=== PATIENT | female | born 2000 | race Caucasian/White ===

== ENCOUNTER 2025-02-19 07:06 | Emergency (ER) | payer OTHER, SELFPAY ==
[2025-02-19 07:17] VITALS: BP 136/80; PULSE 67; TEMP 36.8; O2SAT 99; BMI 53.3
[2025-02-19 07:44] LABS: HCG Qualitative Urine* POSITIVE (NEGATIVE)
--- NOTE | 2025-02-19 07:49 | US_ITS ---
[address] [address] Patient Name: MICHELA GONZALEZ MRN: [id number] date: 2000 Sex: F Assigned Patient Location: ER Current Patient Location: ER Accession/Order Number: [id number] Exam Date: 02/19/2025 08:03 Report Date: 02/19/2025 08:46 At the request of: LEONARDA VASQUEZ MD Procedure: US OB transvaginal FIRST TRIMESTER OB ULTRASOUND COMPARISON: None CLINICAL DATA: patient with vaginal bleeding for the past 2 days. Transvaginal imaging of the pelvis was performed. Estimated uterine size is approximately 6.6 x 3.0 x 4.0 cm. No focal myometrial abnormalities are seen. The endometrial lining is estimated at 7-8 mm. No gestational sac is identified. The right ovary was not identified. The left ovary measures 2.3 x 1.8 x 1.7 cm. There are tiny follicles however no adnexal cysts. There is a heterogeneous area with ring of fire vascularity adjacent to the left ovary measuring 1.9 x 1.7 x 1.4 cm. This raises at least some question as to possible ectopic . There is no free pelvic fluid. US/US OB transvaginal IMPRESSION: NO EVIDENCE OF INTRAUTERINE . NONVISUALIZATION OF THE RIGHT OVARY. VASCULAR AREA ADJACENT TO THE LEFT OVARY, DESCRIBED. ECTOPIC CANNOT BE COMPLETELY EXCLUDED. FOLLOW-UP SERIAL BETA-HCG AND REPEAT ULTRASOUND ARE THEREFORE RECOMMENDED. Impression dictated by: Kimber Whalen M.D. 02/19/2025 8:46 AM Dictation Location: [place] [address] Electronically authenticated by: [id number] Y Date: 02/19/2025 08:46
[2025-02-19 07:53] LABS: Glucose Urine UA NEGATIVE (NEGATIVE)
[2025-02-19 08:13] LABS: Cast Seen? NONE SEEN #/LPF (NONE SEEN); Crystals Seen? Seen #/HPF (None Seen); Urine Culture Indicated YES-FRMC
[2025-02-19 08:16] LABS: Hematocrit 35.6 % (36.0-48.0); Hemoglobin 11.7 g/dL (12.0-16.0); Immature Granulocytes Abs Auto 0.00 10^3/uL (0.00-0.03); Immature Granulocytes Pct Auto 0.0 % (0.0-0.5); Lymphocytes Absolute Auto 2.1 10^3/uL (1.2-3.8); Mean Corpuscular HGB Conc 32.9 g/dL (29.9-35.2); Mean Corpuscular Hemoglobin 27.3 pg (26.7-34.0); Mean Corpuscular Volume 83.0 fL (81.0-99.0); Platelet Count 263 10^3/uL (150-450); Red Blood Count 4.29 10^6/uL (4.20-5.40); White Blood Count 7.2 10^3/uL (4.0-11.0)
[2025-02-19 08:45] LABS: Alanine Aminotransferase 34 U/L (14-59); Albumin Globulin Ratio 0.8; Albumin Level 3.4 g/dL (3.4-5.0); Alkaline Phosphatase 71 U/L (46-116); Anion Gap 14.8; Aspartate Amino Transferase 18 U/L (15-37); Blood Urea Nitrogen 10.0 mg/dL (7.0-18.0); Calcium 8.7 mg/dL (8.5-10.1); Carbon Dioxide 26.2 mmol/L (21.0-32.0); Chloride 105 mmol/L (98-107); Estimated GFR (African America >60 (>=60 mL/min/1.73m^2); Estimated GFR (Non-African Ame >60 (>=60 mL/min/1.73m^2); Globulin 4.1 g/dL; Glucose 106 mg/dL (74-106); Potassium 4.0 mmol/L (3.5-5.1); Sodium 142 mmol/L (136-145); Total Protein 7.5 g/dL (6.4-8.2)
--- NOTE | 2025-02-19 08:54 | ED_ITS ---
HPI HPI - General Adult General Chief complaint: OB/Uterine Contractions Stated complaint: VAGINAL DISCHARGE, RECENT POSITIVE Time Seen by Provider: 02/19/25 07:21 Source: patient Mode of arrival: walk-in Limitations: no limitations History of Present Illness HPI narrative: The patient is a 24-year-old female this is her first that she noticed that she is almost a month ago after she did a urine test at home . Patient noted this morning that she had some blood clots vaginal bleeding this morning She denies any abdominal pain no fever no chills no other concerns no significant nausea or vomiting and she was supposed to follow-up with the RELOCATION SERVICES SPECIALIST doctor tomorrow morning Related Data Allergies Allergy/AdvReac Type Severity Reaction Status Date / Time shellfish derived Allergy Severe Nausea Verified 02/19/25 07:15 Review of Systems ROS Status of ROS 10 or more systems reviewed and unremark able except as noted in history and below PFSH PFSH Social History Little interest or pleasure in doing things: not at all Feeling down, depressed, or hopeless: not at all Exam Narrative Exam Narrative: Nurses notes and vital signs reviewed and patient is not hypoxic. General: Well-appearing and in no apparent distress. Skin: Warm, dry, no pallor noted. No rash. Head: Normocephalic, atraumatic. Neck: Supple, non-tender. Cardiovascular: Regular Rate and Rhythm without murmur, gallop or rub. Respiratory: No accessory muscle use or respiratory distress. Lungs are clear to auscultation, no wheezing, rales or rhonchi Chest Wall: no tenderness Back: No midline thoracic or lumbar vertebral tenderness. No CVA tenderness Musculoskeletal: normal ROM, no calf or popliteal tenderness, no lower extremity edema/swelling GI: Abdomen is soft, non-distended. Normal bowel sounds. No masses appreciated. No tenderness to palpation. No rebound, guarding, or rigidity noted. Neurological: A&O x4. No cranial nerve dysfunction observed. No truncal ataxia. Moves all extremities. Sensation intact. Psychiatric: Cooperative and interactive. Normal mood and affect. Constitutional Vital Signs, click to edit/add: Last Vital Signs Temp 98.3 F 02/19/25 07:17 Pulse 67 02/19/25 07:17 Resp 20 02/19/25 07:17 BP 136/80 02/19/25 07:17 Pulse Ox 99 02/19/25 07:17 O2 Del Method Room Air 02/19/25 07:17 Course Vital Signs Vital signs: Vital Signs Temperature 98.3 F 02/19/25 07:17 Pulse Rate 67 02/19/25 07:17 Respiratory Rate 20 02/19/25 07:17 Blood Pressure 136/80 02/19/25 07:17 Pulse Oximetry 99 02/19/25 07:17 Oxygen Delivery Method Room Air 02/19/25 07:17 Temperature 98.3 F 02/19/25 07:17 Pulse Rate 67 02/19/25 07:17 Respiratory Rate 20 02/19/25 07:17 Blood Pressure 136/80 02/19/25 07:17 Pulse Oximetry 99 02/19/25 07:17 Oxygen Delivery Method Room Air 02/19/25 07:17 Medical Decision Making MDM Narrative Medical decision making narrative: The patient does not have any abdominal pain today and she only had 1 blood clot this morning The patient vaginal bleeding required us to rule out any ectopic The patient CBC and chemistry showed no acute pathology but her blood type group is B- The patient was provided with RhoGAM after her test came positive at 1600 quantitative level The patient hCG that is positive and the fact that the ultrasound did not show any intrauterine with a concern of a left ovarian possible ectopic Her case discussed with team . DANIELA Eric informed and the patient will follow-up with Dr. Bailey tomorrow morning, hCG level quantitative to be done again on 02/21 The patient instructed to come back in case of any bleeding or abdominal pain Lab Data Labs: Lab Results 02/19/25 02/19/25 Range/Units 07:32 08:01 WBC 7.2 (4.0-11.0) 10^3/uL RBC 4.29 (4.20-5.40) 10^6/uL Hgb 11.7 L (12.0-16.0) g/dL Hct 35.6 L (36.0-48.0) % MCV 83.0 (81.0-99.0) fL MCH 27.3 (26.7-34.0) pg MCHC 32.9 (29.9-35.2) g/dL RDW 13.6 (11.0-15.0) % Plt Count 263 (150-450) 10^3/uL MPV 10.9 (9.5-13.5) fL Neut % (Auto) 63.2 (43.0-75.0) % Lymph % (Auto) 29.7 (20.5-60.0) % [place] % (Auto) 5.2 (1.7-12.0) % Eos % (Auto) 1.5 (0.9-7.0) % Baso % (Auto) 0.4 (0.2-2.0) % Neut # (Auto) 4.5 (1.4-6.5) 10^3/uL Lymph # (Auto) 2.1 (1.2-3.8) 10^3/uL Winston # (Auto) 0.4 (0.3-0.8) 10^3/uL Eos # (Auto) 0.1 (0.0-0.7) 10^3/uL Baso # (Auto) 0.0 (0.0-0.1) 10^3/uL Abs Immat Gran (auto) 0.00 (0.00-0.03) 10^3/uL Imm/Tot Granulo (auto) 0.0 (0.0-0.5) % Sodium 142 (136-145) mmol/L Potassium 4.0 (3.5-5.1) mmol/L Chloride 105 (98-107) mmol/L Carbon Dioxide 26.2 (21.0-32.0) mmol/L Anion Gap 14.8 BUN 10.0 (7.0-18.0) mg/dL Creatinine 0.59 (0.55-1.02) mg/dL Est GFR ( Amer) >60 (>=60 mL/min/1.73m^2) Est GFR (Non-Af Amer) >60 (>=60 mL/min/1.73m^2) BUN/Creatinine Ratio 16.9 Glucose 106 (74-106) mg/dL Calcium 8.7 (8.5-10.1) mg/dL Total Bilirubin 0.7 (0.2-1.0) mg/dL AST 18 (15-37) U/L ALT 34 (14-59) U/L Alkaline Phosphatase 71 (46-116) U/L Total Protein 7.5 (6.4-8.2) g/dL Albumin 3.4 (3.4-5.0) g/dL Globulin 4.1 g/dL Albumin/Globulin Ratio 0.8 HCG, Quant 1601 mIU/mL Urine Color Yellow (YELLOW) Urine Clarity Sl cloudy (CLEAR) Urine pH 6.0 (5.0-9.0) Ur Specific [place] 1.025 (1.005-1.025) Urine Protein 30 A (NEG/TRACE) mg/dL Urine Glucose (UA) Negative (NEGATIVE) mg/dL Urine Ketones Negative (NEGATIVE) mg/dL Urine Occult Blood Large A (NEGATIVE) Urine Nitrite Negative (NEGATIVE) Urine Bilirubin Negative (NEGATIVE) Urine Urobilinogen 0.2 (0.2-1.0) EU/dL Ur Leukocyte Esterase Negative (NEGATIVE) Urine RBC 5-10 A (0-2) #/HPF Urine WBC 0-2 A (NONE SEEN) #/HPF Ur Squamous Epith Cells Few A (NONE/RARE) #/LPF Urine Crystals Seen A (None Seen) #/HPF Amorphous Sediment Few Urine Bacteria Large A (NONE SEEN) #/HPF Urine Casts None seen (NONE SEEN) #/LPF Urine Mucus None seen (NONE SEEN) Ur Culture Indicated? Yes-[facility] Urine HCG, Qual Positive A (NEGATIVE) Blood Type B Negative Antibody Screen Negative Discharge Plan Discharge Chief Complaint: OB/Uterine Contractions Clinical Impression: Vaginal bleeding affecting early , Need for rhogam due to Rh negative mother Patient Disposition: Home, Self-Care Time of Disposition Decision: 08:55 Condition: Good Print Language: Iraqi Instructions: Rh (By injection), Ectopic (DC), Subchorionic Hemorrhage (ED) Additional Instructions: Please come back to the ER in case of increasing bleeding or pain. Make sure you do the blood test on February 21 Please make sure you follow-up with Dr. Bailey tomorrow morning Referrals: Dion Bailey DO [Physician, RELOCATION SERVICES SPECIALIST] - 02/20/25 Referral Note: Please make sure you follow-up with Dr. Bailey tomorrow morning Juana Bailey DO [Primary Care Provider] - 1 week
[2025-02-19] MEDS: RHO(D) IMMUNE GLOBULIN 1,500 UNIT SYRINGE 1500 UNIT IM (09:47)
== END 2025-02-19 10:11 | disposition home or self-care (01) ==
PROVIDERS: Emergency Provider Emergency Medicine; PCP Family Medicine
DX: O20.9 Hemorrhage in early pregnancy, unspecified (principal); O26.891 Other specified pregnancy related conditions, first trimester; Z67.21 Type B blood, Rh negative; Z3A.00 Weeks of gestation of pregnancy not specified
CPT/HCPCS: 36415; 76817; 80053; 81001; 84702; 84703; 85025; 86850; 86900; 86901; 87086; 96372; 99281; 99284; J2791

== ENCOUNTER 2025-02-19 19:02 | Emergency (ER) | payer OTHER, SELFPAY ==
[2025-02-19 19:05] VITALS: BP 155/91; PULSE 68; TEMP 36.7; O2SAT 98; BMI 53.3
--- OUTSIDE RECORDS SUMMARY | 2025-02-19 19:21 | XMS_ITS | Clinical Summary ---
Author Organization [facility] Address [address] [place] [address] Care Team Providers Care Plant Technician Name Role Phone Juana Bailey MD Primary Care Provider [phone] Allergies Active Allergy Reactions Criticality Noted Date Comments Shellfish Allergy GI intolerance 12/07/2023 Medications amphetamine-dex troamphetamine XR (Adderall XR) 20 MG 24 hr capsule Take 20 mg by mouth in the morning and 20 mg before bedtime. 12/04/2023 Active loratadine (Claritin) 10 MG tablet Active escitalopram (Lexapro) 10 MG tablet Take 10 mg by mouth Daily 04/22/2024 Active omeprazole (PriLOSEC) [address] capsule 04/22/2024 Activ e Active Problems Problem Noted Date Diagnosed Date Current smoker 12/07/2023 Overview (12/07/2023): Added secondary to documentation in Social History. 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 01/21/2021 Overview (12/07/2023): ESBL urine 05/08/2021 Escherichia coliESBL E coli in urine 03/25/2021SBL E coli in urine 01/21/2021 Encounters Date Type Department Care Team Description 02/19/2025 Abstract [facility] [address] [place] [address] Dion Bailey, DO 02/19/2025 Telephone [facility] [address] [place] [address] Marlys Malik LPN 01/14/2025 Abstract [facility] [address] [place] [address] Dion Bailey, DO 11/21/2024 Telephone [facility] [address] [place] [address] Kerline Zambrano Shoulder Brace from Last 3 Months Family History Medical History Relation Name Comments Broken bones Father Matias eder Diabetes Father Matias [place] Diabetes Maternal Grandfather [facility] Breast cancer Maternal Grandmother [place] Broken bones Maternal Grandmother [facility] Cancer Maternal Grandmother [facility] Diabetes Maternal Grandmother [facility] Broken bones Mother's Sister 1 Negin Broken bones Mother's Sister 2 Negin Colon cancer Other uncle Relation Name Status Comments Father Matias emmanuelford Alive Maternal Grandfather Enrike emmanuelford Alive Maternal Grandmother [place] Mother's Sister 1 Negin Alive Mother's Sister 2 Negin Alive Other Social History Tobacco Use Types Packs/Day Years Used Date Smoking Tobacco: Never Smokeless Tobacco: Never Tobacco Cessation:Counseling Given: Not Answered Alcohol Use Standard Drinks/Week Comments Yes 0 (1 standard drink = 0.6 oz pur e alcohol) AUDIT-C Answer Date Recorded Q1: How often do you have a drink containing alc ohol? Monthly or less 12/07/2023 Q2: How many drinks containi ng alcohol do you have on a typical day when you are drinking? 1 or 2 12/07/2023 Q3: How often do you have si x or more drinks on one occasion? Never 12/07/2023 PHQ-2 Answer Date Recorded Patient Health Questionnaire-2 Score 2 12/07/2023 Comments No Sex and Gender Information Value Date Recorded Sex Assigned at Not on file Legal Sex Female 6:56 PM EDT Gender Identity Not on file Sexual Orientation Not on file Last Filed Vital Signs Vital Sign Reading Time Taken Comments Blood Pressure 126/84 12/07/2023 11:00 AM EDT Pulse - - Temperature - - Respiratory Rate - - Oxygen Saturation - - Inhaled Oxygen Concentration - - Weight 140 kg (308 lb) 11/18/2024 9:26 AM EDT Height 166.4 cm (5' 5.5 ) 11/18/2024 9:26 AM EDT Body Mass Index 50.47 11/18/2024 9:26 AM EDT Plan of Treatment Upcoming Encounters Date Type Department Care Team (Late st Contact Info) Description 03/06/2025 1:00 PM EDT Ancillary Procedure [facility] [address] [place] [address] 03/06/2025 1:30 PM EDT Initial [facility] [address] [place] [address] Insurance [employer] Care Teams Plant Technician Relationship Specialty Start Date End Date Juana Bailey MD [address] [place] [phone] PCP - General Family Medicine 09/16/24
--- OUTSIDE RECORDS SUMMARY | 2025-02-19 19:21 | XMS_ITS | Encounter Summary ---
Author Organization [facility] Address [address] [place] [address] Care Team Providers Care Telephone Surveyor Name Role Phone Juana Bailey MD Primary Care Provider Encounter Details Date Type Department Care Team (Late st Contact Info) Description 02/19/2025 Telephone [facility] [address] [place] [address] [place] [phone] Marlys Malik LPN Social History Tobacco Use Types Packs/Day Years Used Date Smoking Tobacco: Never Smokeless Tobacco: Never Alcohol Use Standard Drinks/Week Comments Yes 0 [...] on file Sexual Orientation Not on file documented as of this encounter Miscellaneous Notes * Telephone Encounter - Noni Eisenberg LPN - 02/19/2025 11:21 AM EDT 1121 am- Jeaneth advised that patient is to have labs drawn in 2 days and use the order that she was given from hospital and that she will need to cancel her appointment in office tomorrow and have this rescheduled for 2 weeks out. Patient was called and made aware of this. Patient states that ER told her she was to come to her appointment as scheduled, patient reassured spoke with Jeaneth who spoke withprovider and to cancel appointment for tomorrow and reschedule for 2 weeks. Patient was advised we are making sure numbers are rising. Patient was transferred to clerical to reschedule this appointment. * Telephone Encounter - Marlys Malik LPN - 02/19/2025 9:07 AM EDT 0907 [facility] ER called and spoke with Jeaneth Knowles PA-C in regard to patient. Dr. Luke informed Jeaneth that patients HCG is 1600's and on ultrasound shows area in/near right ovary & ectopic cannot be ruled out. [facility] will provide patient with another HCG level to be drawn in 2 days. Patient to follow up in office tomorrow for scheduled appointment and PA will speak with patient at that time. Jeaneth will talk with Dr. Bailey as well in regard to plan of care for patient. --documented on behalf ofJeaneth Knowles PA-C by Marlys Betancur LPN documented in this encounter Plan of Treatment Upcoming Encounters Date Type Department Care Team (Late st Contact Info) Description 03/06/2025 1:00 PM EDT [place] [phone] 03/06/2025 1:30 PM EDT [place] [phone] documented as of this encounter Visit Diagnoses Not on filedocumented in this encounter Care Teams Telephone Surveyor Relationship Specialty Start Date End Date Juana Bailey MD [address] [facility] [phone] PCP - General Family Medicine 09/16/24 documented as of this encounter
--- OUTSIDE RECORDS SUMMARY | 2025-02-19 19:21 | XMS_ITS | Encounter Summary ---
Author Organization [facility] Address [address] [place] [address] Care Team Providers Care Bond Analyst Name Role Phone Juana Bailey MD Primary Care Provider [phone] Encounter Details Date Type Department Care Team (Late st Contact Info) Description 02/19/2025 Abstract [facility] [address] [facility] [place] [phone] Dion Bailey DO [address] [facility] [address] [place], [facility] Social History Tobacco Use Types Packs/Day Years [...] on file documented as of this encounter Plan of Treatment Upcoming Encounters Date Type Department Care Team (Late st Contact Info) Description 03/06/2025 1:00 PM EDT Ancillary Procedure [facility] [address] [place] [address] 03/06/2025 1:30 PM EDT Initial [facility] [address] [place] [address] documented as of this encounter Visit Diagnoses Not on filedocumented in this encounter Care Teams Bond Analyst Relationship Specialty Start Date End Date Juana Bailey MD [address] [place] [phone] PCP - General Family Medicine 09/16/24 documented as of this encounter
--- OUTSIDE RECORDS SUMMARY | 2025-02-19 19:21 | XMS_ITS | Encounter Summary ---
Author Organization [facility] Address [address] [place] [address] Care Team Providers Care Content Management Consultant Name Role Phone Juana Bailey MD Primary Care Provider [phone] Encounter Details Date Type Department Care Team (Late st Contact Info) Description 01/14/2025 Abstract [facility] [address] [facility] [place] [phone] Dion Bailey DO [address] [facility] [address] [place], [id number] Social History Tobacco Use Types Packs/Day Years [...] Procedure [facility] [address] [place] [address] 03/06/2025 1:30 PM EDT Initial [facility] [address] [place] [address] documented as of this encounter Visit Diagnoses Not on filedocumented in this encounter Care Teams Content Management Consultant Relationship Specialty Start Date End Date Juana Bailey MD [address] [place] [phone] PCP - General Family Medicine 09/16/24 documented as of this encounter
--- NOTE | 2025-02-19 19:40 | ED_ITS ---
HPI - General Chief complaint: Vaginal Bleeding Stated complaint: BLEEDING/ Time Seen by Provider: 02/19/25 19:32 Source: patient Mode of arrival: walk-in Limitations: no limitations History of Present Illness HPI Narrative: cc - vaginal bleeding in The patient is somewhere between 6 and 8 weeks . Her first test was at home in January. She believes her last menstrual period was sometime in late December. She came to the emergency department earlier today for evaluation after developing vaginal bleeding. Quantitative hCG was around 1600 and her ultrasound did not reveal evidence of intrauterine . There was a heterogeneous area near the left ovary. Ectopic could not be completely excluded. The ED staff had apparently talked to Jeaneth Knowles, the PA at Dr. Bailey's office, and they made arrangements for the patient to be seen in the office tomorrow. Arrangements were also made for the patient to get a repeat quantitative hCG on the morning of February 21, 2025. The patient told me that before she was discharged home, she was told that if she had additional bleeding she should return to the emergency department. Shortly after she got home, she got a phone call from the office that her appointment for tomorrow was rescheduled for 06 March. She was supposed to keep the appointment for repeat hCG on the morning of February 21. A short time after that, she had additional bleeding and therefore came back to the emergency department for evaluation. Pain has not changed. No fever or chills. No lightheadedness, dizziness, palpitations. Related Data Allergies Allergy/AdvReac Type Severity Reaction Status Date / Time shellfish derived Allergy Severe Nausea Verified 02/19/25 19:11 PFSH PFSH Social History Little interest or pleasure in doing things: not at all Feeling down, depressed, or hopeless: not at all Exam Narrative Exam Narrative: Nurses notes and vital signs reviewed and patient is not hypoxic. afebrile General: Well-appearing and in no apparent distress. Skin: Warm, dry, no pallor noted. No rash. Head: Normocephalic, atraumatic. Eye: Pupils are equal, round and EOMI. No scleral icterus. Ears, Nose, Mouth, and Throat: Oral mucosa is moist Cardiovascular: Regular Rate and Rhythm without murmur, gallop or rub. Respiratory: No accessory muscle use or respiratory distress. Lungs are clear to auscultation, no wheezing, rales or rhonchi Back: No midline thoracic or lumbar vertebral tenderness. No CVA tenderness Musculoskeletal: normal ROM, no calf or popliteal tenderness, no lower extremity edema/swelling GI: Abdomen is soft, non-distended. Normal bowel sounds. No masses appreciated. No tenderness to palpation. No rebound, guarding, or rigidity noted. Neurological: A&O x4. No cranial nerve dysfunction observed. No truncal ataxia. Moves all extremities. Sensation intact. Psychiatric: Cooperative and interactive. Normal mood and affect. Constitutional Vital Signs, click to edit/add: Last Vital Signs Temp 98.1 F 02/19/25 19:05 Pulse 68 02/19/25 19:05 Resp 18 02/19/25 19:05 BP 155/91 H 02/19/25 19:05 Pulse Ox 98 02/19/25 19:05 O2 Del Method Room Air 02/19/25 19:05 Course Vital Signs Vital signs: Vital Signs Temperature 98.1 F 02/19/25 19:05 Pulse Rate 68 02/19/25 19:05 Respiratory Rate 18 02/19/25 19:05 Blood Pressure 155/91 H 02/19/25 19:05 Pulse Oximetry 98 02/19/25 19:05 Oxygen Delivery Method Room Air 02/19/25 19:05 Temperature 98.1 F 02/19/25 19:05 Pulse Rate 68 02/19/25 19:05 Respiratory Rate 18 02/19/25 19:05 Blood Pressure 155/91 H 02/19/25 19:05 Pulse Oximetry 98 02/19/25 19:05 Oxygen Delivery Method Room Air 02/19/25 19:05 MDM - OB/Uterine Contractions MDM Narrative Medical decision making narrative: The patient was evaluated earlier today in the emergency department and found to have a quantitative hCG of 1600 with vaginal bleeding concerning for miscarriage. Ectopic could not be excluded due to changes noted on ultrasound near the left ovary. Plans were made for the patient to follow-up with Dr. Bailey on an outpatient basis including repeat hCG in 2 days. She was also given RhoGAM injection as she was Rh-. Patient returned because bleeding continued and she had been told to come back to the ED if she bled vaginally. I saw and examined the patient. She was given reassurance. I had a long talk with the patient about her ultrasound results, her quantitative hCG result, the importance of getting appropriate obstetrical follow-up, the reason why we need to repeat hCG, the possibility of ectopic versus miscarriage, reasons to return to the ED including heart palpitations, excessive vaginal bleeding, pallor, syncope or near syncope. She was discharged home and will see Dr. Bailey in follow-up. ED return if she were to develop the symptoms as mentioned above. Discharge Plan Discharge Chief Complaint: Vaginal Bleeding Clinical Impression: Threatened , Vaginal bleeding affecting early Patient Disposition: Home, Self-Care Time of Disposition Decision: 19:46 Print Language: Icelandic Instructions: Threatened Miscarriage (ED) Referrals: Juana Bailey DO [Primary Care Provider] - 1 week Dion Bailey DO [Physician, AIR TRAFFIC SUPERVISOR] - As soon as possible
== END 2025-02-19 20:03 | disposition home or self-care (01) ==
PROVIDERS: Emergency Provider Emergency Medicine; PCP Family Medicine
DX: O20.0 Threatened abortion (principal); O26.891 Other specified pregnancy related conditions, first trimester
CPT/HCPCS: 99281

== ENCOUNTER 2025-02-21 14:08 | Outpatient (OUT) | payer OTHER, SELFPAY ==
--- OUTSIDE RECORDS SUMMARY | 2025-02-19 20:32 | XMS_ITS | Continuity of Care Document ---
Author Organization [facility] Address [address] [place] [address] Phone Care Team Providers Care Wildland Fire Operations Specialist Name Role Phone Kelsey Luke MD Attending Provider Care Teams Visit Care Team Team Status: Inactive Member Role Status Dates Kelsey Luke MD Attending Provider Active Sta rt: February 19, 2025 End: February 19, 2025 Chief Complaint and Reason for Visit Chief Complaint Admit Date Unknown February 19, 2025 7 :32am Social History Smoking Status Unknown if ever smoked Observation Status Observation Response Date of Response Legal Sex Female (finding) Sex Assigned At Female April [birth year] Problems Active Problems Medical Problem Onset Date Status Paresthesia Unknown Active Procedures Procedure Date Performed Status Urine Culture February 19, 2025 active Advance Directives Advance Directive Response Recorded Date/ Time Advance Directives No November 11 8:23am Insurance Providers Guarantor Hilary Sheppard Address [place] [facility] [address] [facility] [address] Contact Info. Home Phone: Payer Policy Id Subscriber's Name Subscriber Id Effectiv e Date Expiration Date [facility] [id number] Hilary Sheppard [id number] [facility] Claims [id number] [facility] [id number] Encounters Encounter Location(s) Arrival/Admit Date Discharge/Depart Date Provider(s) Departed Referred -[facility] February 19, 2025 7:32am February 19, 2025 7:33am Kelsey Luke MD Plan of Treatment Future Tests Future scheduled test information is unavailable Pending Tests Test Name Ordered Date Scheduled Date Urine Culture February 19, 2025 7:32am Future Visits Future appointment information is unavailable Referrals to Other Providers Referral information is unavailable Future Procedures Procedure Name Ordered Date Scheduled Date Urine Culture February 19, 2025 2:11pm Jamesobe r 2024 7:32am Future Medications Future medication information is unavailable Patient Instructions Patient instructions are unavailable
--- OUTSIDE RECORDS SUMMARY | 2025-02-21 14:12 | XMS_ITS | Encounter Summary ---
Author Organization [facility] Address [address] [place] [address] Care Team Providers Care Yarn Examiner Name Role Phone Juana Bailey MD Primary Care Provider Encounter Details Date Type Department Care Team (Late st Contact Info) Description 02/19/2025 Telephone [facility] [address] [place] [address] [place] [phone] Marlys Malik LPN Social History Tobacco Use [...] LPN - 02/19/2025 9:07 AM EDT [id number] [facility] ER called and spoke with Jeaneth Knowles PA-C in regard to patient. Dr. Luke informed Jeaneth that patients HCG is 1600's and on ultrasound shows area in/near right ovary & ectopic cannot be ruled out. [facility] will provide patient with another HCG level [...] PM EDT Ancillary [place] [phone] 03/06/2025 1:30 PM [place] [phone] documented as of this encounter Visit Diagnoses Not on filedocumented in this encounter Care Teams Yarn Examiner Relationship Specialty Start Date End Date Juana Bailey MD [address] [facility] [place] [phone] PCP - General Family Medicine 09/16/24 documented as of this encounter
--- OUTSIDE RECORDS SUMMARY | 2025-02-21 14:12 | XMS_ITS | Encounter Summary ---
Author Organization [facility] Address [address] [place] [address] Care Team Providers Care Patent Searcher Name Role Phone Juana Bailey MD Primary Care Provider [phone] Encounter Details Date Type Department Care Team (Late st Contact Info) Description 02/19/2025 Abstract [facility] [address] [place] [phone] Dion Bailey DO [address] [facility] [address], [facility]11 Social History Tobacco Use Types Packs/Day [...] on filedocumented in this encounter Care Teams Patent Searcher Relationship Specialty Start Date End Date Juana Bailey MD [address] [place] [phone] PCP - General Family Medicine 09/16/24 documented as of this encounter
--- OUTSIDE RECORDS SUMMARY | 2025-02-21 14:12 | XMS_ITS | Encounter Summary ---
Author Organization [facility] Address [address] [place] [address] Care Team Providers Care Accountant Cost Name Role Phone Juana Bailey MD Primary Care Provider Encounter Details Date Type Department Care Team (Late st Contact Info) Description 01/14/2025 Abstract [facility] [address] [facility] [place] [phone] Dion Bailey DO [address] [facility] [address], [facility]11 Social History Tobacco Use Types Packs/Day Years [...] Procedure [facility] [address] [place] [address] 03/06/2025 1:30 PM EDT Initial [facility] [address] [place] [address] documented as of this encounter Visit Diagnoses Not on filedocumented in this encounter Care Teams Accountant Cost Relationship Specialty Start Date End Date Juana Bailey MD [address] [place] [phone] PCP - General Family Medicine 09/16/24 documented as of this encounter
--- OUTSIDE RECORDS SUMMARY | 2025-02-21 14:12 | XMS_ITS | Clinical Summary ---
Author Organization [facility] Address [address] [place] [address] Care Team Providers Care Saxophone Teacher Name Role Phone Juana Bailey MD Primary Care Provider [phone] Allergies Active Allergy Reactions Criticality Noted Date [...] [facility] [address] [place] [address] Dion Bailey, DO 02/19/2025 Telephone [facility] [address] [place] [address] Marlys Malik LPN 01/14/2025 Abstract [facility] [address] [place] [address] Dion Bailey, DO 11/21/2024 Telephone [facility] [address] [place] [address] Kerline Zambrano Shoulder Brace from Last 3 Months Family History Medical History Relation Name Comments Broken bones Father Matias eder Diabetes Father Matias leadore Diabetes Maternal Grandfather [facility] Breast cancer Maternal Grandmother Glen leadore Broken bones Maternal Grandmother [facility] Cancer Maternal Grandmother [facility] Diabetes Maternal Grand[facility] Broken bones Mother's Sister 1 Negin [...] Procedure [facility] [address] [place] [address] 03/06/2025 1:30 PM EDT Initial [facility] [address] [place] [address] Insurance [employer] Care Teams Saxophone Teacher Relationship Specialty Start Date End Date Juana Bailey MD [address] [place] [phone] PCP - General Family Medicine 09/16/24
== END 2025-02-21 14:09 | disposition home or self-care (01) ==
PROVIDERS: PCP Family Medicine; Visit Provider Emergency Medicine
DX: O02.81 Inappropriate change in quantitative human chorionic gonadotropin (hCG) in early pregnancy (principal)
CPT/HCPCS: 36415; 84702

== ENCOUNTER 2025-03-06 14:37 | Outpatient (RCR) | payer OTHER, SELFPAY | END 2025-03-10 12:06 | disposition home or self-care (01) | LOC: LAB 14:37 | PROVIDERS: PCP Family Medicine; Visit Provider Nurse Practitioner Family | DX: Z51.81 Encounter for therapeutic drug level monitoring (principal); Z32.01 Encounter for pregnancy test, result positive | CPT/HCPCS: 36415; 84702 ==

== ENCOUNTER 2025-03-13 13:21 | Outpatient (OUT) | payer OTHER, SELFPAY | END 2025-03-13 13:22 | disposition home or self-care (01) | LOC: LAB 13:22 | PROVIDERS: PCP Family Medicine; Visit Provider Nurse Practitioner Family | DX: Z32.01 Encounter for pregnancy test, result positive (principal) | CPT/HCPCS: 36415; 84702 ==